=== PATIENT | female | born 1945 | race Caucasian/White ===

== ENCOUNTER 2017-04-06 14:32 | Observation (INO) ==
[2017-04-06] MEDS ORDERED: ENOXAPARIN 100 MG/ML SYRINGE SUBCUT STA (15:14)
[2017-04-06] MEDS ORDERED: ENOXAPARIN 100 MG/ML SYRINGE SUBCUT ONE (15:26)
[2017-04-06 15:27] LABS: Basophils # 0.1 10*3/uL (0.0-0.2); Basophils % 0.6 % (0.0-0.8); Eosinophils # 0.2 10*3/uL (0.0-0.87); Eosinophils % 1.1 % (0.00-10.9); Hematocrit 42.1 VOL% (35.7-47.0); Hemoglobin 14.6 GM/DL (12.0-16.0); Immature Granulocytes % 0.5 %; Immature Granulocytes Absolute 0.07 #; Lymphocytes # 2.9 10*3/uL (1.4-4.0); Lymphocytes % 20.1 % (21.3-54.2); Mean Corpuscular HGB Conc 34.7 GM/DL (32-36); Mean Corpuscular Hemoglobin 31 PG (27-34); Mean Corpuscular Volume 88.1 FL (87-102); Monocytes # 1.3 10*3/uL (0.11-0.8); Monocytes % 9.3 % (1.7-12.7); Neutrophils # 9.9 10*3/uL (1.4-7.4); Neutrophils % 68.4 % (38.7-73.9); Platelet Count 369 T/CUMM (130-400); Red Blood Count 4.78 MC/CUMM (3.8-5.5); Red Cell Distribution Width 13.2 % (9.3-17.3); White Blood Count 14.5 T/CUMM (4-12)
--- NOTE | 2017-04-06 15:29 | XRay Report ---
XR chest 2V Indication: Chest pain. Chest 2 views: No comparison. The heart size and mediastinal contour are normal. The lungs and pleural spaces are clear, except for scattered calcified granuloma. Bones are unremarkable. Impression: Negative chest except for prior granulomatous disease. PROCEDURE INTERPRETED AT [facility] DEPARTMENT OF RADIOLOGY Final Report Signed by: Vargas Reyes M.D.
[2017-04-06] MEDS ORDERED: NITROGLYCERIN SL 0.4 MG TABLET SL ONE (15:53)
[2017-04-06] MEDS: NITROGLYCERIN SL 0.4 MG TABLET SL PRN ×2 (15:53→16:45)
[2017-04-06 15:58] LABS: Alanine Aminotransferase 31 U/L (13-56); Albumin 3.6 G/DL (3.4-5.0); Alkaline Phosphatase 71 U/L (45-117); Aspartate Amino Transferase 24 U/L (0-37); Bilirubin,Total < 0.39 MG/DL (0.2-1.0); Blood Urea Nitrogen 30 MG/DL (7-18); Calcium 9.9 MG/DL (8.5-10.1); Glucose 105 MG/DL (74-106); Osmolality,Calculated 284.4 MOS/KG (273-304); Potassium 3.7 MMOL/L (3.5-5.1); Sodium 140 MMOL/L (136-145); Total Protein 7.4 G/DL (6.4-8.3)
--- NOTE | 2017-04-06 16:32 | Emergency Department Note ---
Kecia Whitman Mantricia, am scribing for, and in the presence of, Orestes Solorio MD 15:21. Osmin Whitman Phillip K, MD, personally performed the services described in this documentation, ascribed by Olivia Mcdonnell in my presence, and it is both accurate and complete [id number] . Arrival - Arrival Chief Complaint: Chest Pain Stated Complaint: CHEST PAIN ED Nursing Triage Note: Pt c/o Chest pain when she awoke this am that is worse with deep inspiration. Pt had EGD by Dr Mena yesterday. Mode of Arrival: Wheelchair Limitations: No Limitations Source: Patient Time Seen by Provider: 04/06/17 15:05 - History of Present Illness HPI Narrative: Pt is a 72 y/o white female arriving to ED with c/o chest pain that onset 0700 today. She states that the pain worsens with breaths and is constant with LUE pain. She was given two aspirins at the clinic and states that she stills feel pressure. Pt has a PMHx of HTN and HLD. She confirms smoking 1/2 pack of cigarettes a day. She reports that yesterday she had an upper scope done by Dr. Mena at [place] and had several biopsies and she thought that maybe something went wrong the reason that her chest began to hurt today. However, she called back to the doctor and he informed her that the scope was not connected to her chest pain and requested that she come to ED. She reports no other complaints to ED. patient was also recently diagnosed with gallstones at [place]. Patient's pain was relieved with nitroglycerin sublingual in the ED after 2 minutes. There is no associated shortness of breath nausea vomiting or diaphoresis. Patient apparently is never had any type of cardiac workup. Onset (ago): hour(s) Consistency: constant Allergies/Adverse Reactions: Allergies Allergy/AdvReac Type Severity Reaction Status Date / Time codeine Allergy ITCHING Verified 04/06/17 14:42 quinidine Allergy ITCHING Verified 04/06/17 14:42 Home Medications: Home Medications Medication Instructions Recorded Confirmed Type Atorvastatin [Lipitor] 20 mg PO DAILY 04/06/17 04/06/17 History Cetirizine Tab [ZyrTEC Tab] 10 mg PO DAILY 04/06/17 04/06/17 History Fenofibrate 160 mg PO DAILY 04/06/17 04/06/17 History Gabapentin 100 mg PO DAILY 04/06/17 04/06/17 History Gabapentin 300 mg PO QPM 04/06/17 04/06/17 History Hydrocodone/Acetaminophen 1 each PO BID PRN 04/06/17 04/06/17 History [Hydrocodon-Acetaminoph 7.5-325] [place]-3/Dha/Epa/Fish Oil [Fish Oil 4,000 mg PO DAILY 04/06/17 04/06/17 History Conc 1,000 mg Softgel] Triamterene/Hydrochlorothiazid 1 each PO DAILY 04/06/17 04/06/17 History [Triamterene-Hctz 37.5-25 mg Tb] amLODIPine [Norvasc] 5 mg PO DAILY 04/06/17 04/06/17 History buPROPion SR [Wellbutrin Sr] 100 mg PO DAILY 04/06/17 04/06/17 History hydroCHLOROthiazide 12.5 mg PO DAILY 04/06/17 04/06/17 History [Hydrochlorothiazide] Review of System - Review of System 12 point system: reviewed and no additional remarkable complaints except as stated - Review of System Constitutional: Absent: chills, diaphoresis Eyes: Absent: pain Cardiovascular: Present: chest pain Musculoskeletal: Present: arm pain (left) Medical,Surgical,& Family Hx - Medical History Cardio: History of: Hypertension Psychological: History of: Depression Endocrine: History of: Dyslipidemia Rheumatology: History of;: Fibromyalgia Hematology: History of: Anemia - Surgical History Reproductive Surgeries: Surgical HX of;: Hysterectomy Orthopedic Surgeries: Surgical HX of;: Orthopedic Surgery (Carpal tunnel), Total Knee Replacement (Oren) - Social History Smoking Status: Never smoker Exam Vital Signs: Vital Signs Temperature 97.3 F L 04/06/17 14:41 Pulse Rate 93 H 04/06/17 14:41 Respiratory Rate 20 04/06/17 14:41 Blood Pressure 128/77 04/06/17 14:41 O2 Sat by Pulse Oximetry 98 04/06/17 14:41 - General General appearance: alert, in no apparent distress - Head Head exam: Present: atraumatic, normocephalic, normal inspection - Eye Eye exam: Present: normal appearance, PERRL, EOMI - ENT ENT exam: Present: normal exam, normal oropharynx, mucous membranes dry, TM's normal bilaterally, normal external ear exam - Neck Neck exam: Present: normal inspection, full ROM, trachea midline. Absent: tenderness - Chest Chest inspection: Present: symmetric chest wall rise, tenderness (left anterior chest wall) - Respiratory Respiratory exam: Present: normal lung sounds bilaterally - Cardiovascular Cardiovascular exam: Present: regular rate, normal rhythm, normal heart sounds - Abdominal Exam Abdominal exam: Present: soft, normal bowel sounds. Absent: distention, tenderness, guarding, rebound - Extremities Exam Extremities exam: Present: normal inspection, full ROM, tenderness (LUE), normal capillary refill. Absent: pedal edema - Back Exam Back exam: Present: normal inspection, full ROM. Absent: tenderness - Neurological Exam Neurological exam: Present: alert, oriented X3, CN II-XII intact, normal gait, reflexes normal - Psychiatric Psychiatric exam: Present: normal affect, normal mood - Skin Skin exam: Present: warm, dry, intact, normal color Course Course Narrative: Patient discussed with the hospitalist who will admit and get a cardiac evaluation. Results - Labs CBC & BMP: 04/06/17 15:17 04/06/17 15:17 Lab Results: I have reviewed the patients labs - EKG EKG results: interpreted by LIZETH, sinus rhythm (Questionable old septal WA) Disposition Clinical Impression: Chest pain, Possible unstable angina, History of cholelithiasis, Chest wall pain, Possible pleurisy Case discussed with: patient Disposition: Still a Patient Condition: Guarded Additional Instructions: Admit to the hospitalist for cardiac evaluation.
[2017-04-06] MEDS ORDERED: diphenhydrAMINE CAP 25 MG CAPSULE PO PRN (17:05)
[2017-04-06] MEDS ORDERED: NICOTINE 21 MG/24 HR PATCH TRANSDERM PRN (17:05)
[2017-04-06] MEDS ORDERED: guaiFENesin/DM ER 600-30 MG TABLET PO PRN (17:05)
[2017-04-06] MEDS ORDERED: MORPHINE 2 MG/1 ML SYRINGE IV PRN (17:05)
[2017-04-06] MEDS ORDERED: PROMETHAZINE 25 MG/1 ML VIAL IM PRN (17:05)
[2017-04-06] MEDS ORDERED: DOCUSATE SODIUM 100 MG CAPSULE PO PRN (17:05)
[2017-04-06] MEDS ORDERED: ONDANSETRON 4 MG/2 ML VIAL IV PRN (17:05)
--- NOTE | 2017-04-06 17:20 | Hospitalist History & Physical ---
Assessment and Plan - Time spent with patient Time spent with patient: Greater than 30 minutes (1) Shortness of breath Status: Acute Assessment and plan: Ms. Mckoy is a very pleasant 72-year-old white female with history of hypertension, chronic pain, and tobacco abuse admitted by the hospitalist service to observation with chest pain and shortness of breath. Patient had an EGD done yesterday and pain may be consistent with pleuritic chest pain. But with patient's tobacco use and history of heart disease would be safe to consult cardiology for further evaluation. Will get serial troponins and serial EKGs. Will also obtain a CT of the chest to rule out pulmonary embolism. She does have a mildly elevated creatinine of 1.2 so we will give her some IV fluids and see if this brings it back down. We will recheck her labs in the morning. Patient's home medicines will be restarted and will continue to monitor her symptoms. Dr. Guillen will see and examined patient and further recommendations to follow. Current Visit: Yes (2) Hypertension Status: Acute Current Visit: Yes (3) Hyperlipidemia Status: Acute Current Visit: Yes (4) Fibromyalgia Status: Acute Current Visit: Yes (5) Chest pain Status: Acute Current Visit: Yes History of Present Illness Chief complaint: Chest pain History of present illness: Ms. Segovia is a 72 year old white female with history of hypertension, tobacco abuse and fibromyalgia presenting to the ED with a 1 day history of chest pain and shortness of breath. Patient states she had an EGD at Dr. Mena's office yesterday and he took some biopsies and everything went fine. She woke up this morning with left-sided chest pain that increases with deep inspiration. She is getting short of breath with minimal exertion. She called Dr. Mena's office and they told her to go see Dr. Mathew. Dr. Mathew was out but her nurses walked her over to the ED. She denies nausea or diaphoresis. She denies headache, abdominal pain, constipation or diarrhea, or lower extremity edema. She just switched over to Dr. Mahtew as her primary care physician and she has never used [facility] before. Upon exam patient does have conversational dyspnea and she is holding her chest with deep breathing. She is afebrile her pulse rate is in the 90s and her blood pressure stable. Her WBCs are elevated at 14.5, creatinine mildly elevated at 1.2 and her troponin is negative. Her EKG shows sinus rhythm with first-degree AV block and a ventricular conduction delay. Her chest x-ray shows prior granulomatous disease. Patient's case was discussed with Dr. Solorio the ED physician and Dr. Guillen the admitting hospitalist and it was agreed patient would be admitted for further evaluation. Home Medications Medication Instructions Recorded Confirmed Type Atorvastatin [Lipitor] 20 mg PO DAILY 04/06/17 04/06/17 History Cetirizine Tab [ZyrTEC Tab] 10 mg PO DAILY 04/06/17 04/06/17 History Fenofibrate 160 mg PO DAILY 04/06/17 04/06/17 History Gabapentin 100 mg PO DAILY 04/06/17 04/06/17 History Gabapentin 300 mg PO QPM 04/06/17 04/06/17 History Hydrocodone/Acetaminophen 1 each PO BID PRN 04/06/17 04/06/17 History [Hydrocodon-Acetaminoph 7.5-325] [place]-3/Dha/Epa/Fish Oil [Fish Oil 4,000 mg PO DAILY 04/06/17 04/06/17 History Conc 1,000 mg Softgel] Triamterene/Hydrochlorothiazid 1 each PO DAILY 04/06/17 04/06/17 History [Triamterene-Hctz 37.5-25 mg Tb] amLODIPine [Norvasc] 5 mg PO DAILY 04/06/17 04/06/17 History buPROPion SR [Wellbutrin Sr] 100 mg PO DAILY 04/06/17 04/06/17 History hydroCHLOROthiazide 12.5 mg PO DAILY 04/06/17 04/06/17 History [Hydrochlorothiazide] Allergies Allergy/AdvReac Type Severity Reaction Status Date / Time codeine Allergy ITCHING Verified 04/06/17 14:42 quinidine Allergy ITCHING Verified 04/06/17 14:42 Medical,Surgical,& Family Hx - Medical History Cardio: History of: Hypertension Psychological: History of: Depression Endocrine: History of: Dyslipidemia Rheumatology: History of;: Fibromyalgia Hematology: History of: Anemia - Surgical History Reproductive Surgeries: Surgical HX of;: Hysterectomy Orthopedic Surgeries: Surgical HX of;: Orthopedic Surgery (Carpal tunnel), Total Knee Replacement ([facility]) - Family History Family History: Reports;: Family Heart Disease - Social History Smoking Status: Current every day smoker Frequency of Alcohol Use: None Type of Drug Use: None Marital Status: Lives With:: Alone Functional capacity: independent ambulation Review of systems: A complete 10 system review of systems was obtained and pertinent positives and negatives per HPI Exam - Constitutional Vitals: Period Temp Pulse Resp BP Sys/Stone Pulse Ox Last 24 Hr 97.3 F-97.3 F 93-93 20-20 128-128/77-77 98 Exam: Constitutional System: Mild distress. No tremulousness. Head: Normocephalic, atraumatic. Ears, Nose and Throat System: No evidence of Otitis or Mastoiditis. No epistaxis or discharge Eyes System: Pupils equal, round, and reactive. Extraocular muscles intact. Neck: Supple, without adenopathy, No jugular venous distention. No thyromegaly, neck mass, or prior surgery apparent. Respiratory System: Chest clear to auscultation. Cardiovascular System: Heart with regular rate and rhythm. No murmur. GI System: Abdomen soft, nontender. Normo active bowel sounds present. Musculoskeletal System: limbs with no pedal edema. Full distal pulses. Neurological System: No discernable sensory deficit. No aphasia Psychiatric System: Conversation is rational Results - Labs CBC & BMP: 04/06/17 15:17 04/06/17 15:17 Lab Results: I have reviewed the past 24 hour labs - Impressions EKG shows sinus rhythm with first-degree AV block and right ventricular conduction delay - Diagnostic Findings Procedure: Chest x-ray: report reviewed by me (Negative chest except for prior granulomatous disease)
--- NOTE | 2017-04-06 18:34 | CT Report ---
CT chest PE study Indication: Chest pain and shortness of breath. CT CHEST WITH CONTRAST, PE PROTOCOL DLP: 229 mGy*cm. One or more of the following dose reduction techniques was used: Automated exposure control, adjustment of the mA and/or kV according the patient size, or use of iterative reconstruction techniques. Comparison: None Technique: Axial CT images of the chest were obtained during the pulmonary arterial phase of contrast injection. Coronal reconstructions were provided. Omnipaque 350, 80 cc. Findings: A central, lobar or segmental pulmonary artery filling defects. Main pulmonary arteries normal in size. Normal heart size. Calcified atheromatous disease of coronary arteries is present and mild. Aortic is grossly unremarkable. No mediastinal, axillary or hilar lymphadenopathy. Limited views of the upper abdomen are benign. Pleural spaces are clear. There are couple of calcified granulomata. 3 mm pulmonary nodule within the anterior segment right upper lobe noted. Lungs are otherwise clear. Mild endplate spondylitic changes thoracic spine. Impression: No evidence of PE. 3 mm pulmonary nodule right upper lobe, too small to further characterize. PROCEDURE INTERPRETED AT [facility] DEPARTMENT OF RADIOLOGY Final Report Signed by: Vargas Reyes M.D.
[2017-04-06] MEDS ORDERED: GABAPENTIN 300 MG CAPSULE PO SCH (19:00)
[2017-04-06 19:08] LABS: Troponin I Only < 0.015 NG/ML (0.00-0.045)
[2017-04-06] MEDS: ENOXAPARIN 40 MG/0.4 ML SYRINGE SUBCUT SCH ×2 (20:16→20:25)
[2017-04-06] MEDS: SODIUM CHLORIDE 0.9% 1,000 ML IV SCH (20:17)
[2017-04-06] MEDS: ACETAMINOPHEN 325 MG TABLET PO PRN (20:18)
--- NOTE | 2017-04-06 21:21 | EKG Report ---
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
[2017-04-06 22:29] LABS: Troponin I Only < 0.015 NG/ML (0.00-0.045)
[2017-04-07] MEDS: ACETAMINOPHEN 325 MG TABLET PO PRN (02:56)
[2017-04-07] MEDS: SODIUM CHLORIDE 0.9% 1,000 ML IV SCH ×2 (04:44→11:22)
[2017-04-07 05:06] LABS: Basophils # 0.1 10*3/uL (0.0-0.2); Basophils % 0.5 % (0.0-0.8); Eosinophils # 0.2 10*3/uL (0.0-0.87); Eosinophils % 1.9 % (0.00-10.9); Hemoglobin 13.1 GM/DL (12.0-16.0); Immature Granulocytes % 0.3 %; Immature Granulocytes Absolute 0.03 #; Lymphocytes # 3.6 10*3/uL (1.4-4.0); Lymphocytes % 37.5 % (21.3-54.2); Mean Corpuscular HGB Conc 33.6 GM/DL (32-36); Mean Corpuscular Hemoglobin 30 PG (27-34); Mean Corpuscular Volume 89.7 FL (87-102); Mean Platelet Volume 9.3 FL (9.6-12.0); Monocytes # 1.1 10*3/uL (0.11-0.8); Monocytes % 11.6 % (1.7-12.7); Neutrophils # 4.7 10*3/uL (1.4-7.4); Neutrophils % 48.2 % (38.7-73.9); Platelet Count 328 T/CUMM (130-400); Red Blood Count 4.35 MC/CUMM (3.8-5.5); Red Cell Distribution Width 13.4 % (9.3-17.3); White Blood Count 9.7 T/CUMM (4-12)
[2017-04-07 05:40] LABS: Calcium 8.8 MG/DL (8.5-10.1); Osmolality,Calculated 286.1 MOS/KG (273-304); Potassium 3.7 MMOL/L (3.5-5.1)
--- NOTE | 2017-04-07 07:18 | XRay Report ---
XR chest 2V Indication: Shortness of breath. Chest 2 views: Comparison yesterday. Heart size remains normal with continued tortuosity thoracic aorta. No new infiltrates are seen. Pleural spaces remain clear. Impression: No change. PROCEDURE INTERPRETED AT [facility] DEPARTMENT OF RADIOLOGY Final Report Signed by: Vargas Reyes M.D.
--- NOTE | 2017-04-07 08:15 | EKG Report ---
Stationary ECG Study [facility] ER Test Date: 04/06/2017 2:44:13 PM Pat Name: YANIRA FULLER Department: Room: 292 Gender: F Pay Clerk: Morro De León : 1945 Requested by: Orestes Corea Order Number: [id number] Reading MD: RD JEFFRIES Intervals [place] Rate: 91 P: 69 MS: 215 QRS: 71 QRSD: 94 T: 71 QT: 348 QTc: 397 Interpretive Statements SINUS RHYTHM WITH FIRST DEGREE AV BLOCK RSR (QR) IN V1/V2 CONSISTENT WITH RIGHT VENTRICULAR CONDUCTION DELAY Electronically Signed On 04-08-17 07:57:[address] JEFFREIS [id number]
[2017-04-07] MEDS ORDERED: amLODIPine 5 MG TABLET PO SCH (09:00)
[2017-04-07] MEDS ORDERED: FENOFIBRATE 160 MG TABLET PO SCH (09:00)
[2017-04-07] MEDS ORDERED: GABAPENTIN 100 MG CAPSULE PO SCH (09:00)
[2017-04-07] MEDS ORDERED: OMEGA 3 ACID ETHYL ESTERS 1 GM CAPSULE PO SCH (09:00)
[2017-04-07] MEDS ORDERED: TRIAMTERENE/HCTZ 37.5-25 MG TABLET PO SCH (09:00)
[2017-04-07] MEDS ORDERED: CETIRIZINE 10 MG TABLET PO SCH (09:00)
[2017-04-07] MEDS ORDERED: ATORVASTATIN 20 MG TABLET PO SCH (09:00)
[2017-04-07] MEDS ORDERED: PANTOPRAZOLE 40 MG TABLET PO SCH (09:00)
[2017-04-07] MEDS ORDERED: hydroCHLOROthiazide 12.5 MG CAPSULE PO SCH (09:00)
--- NOTE | 2017-04-07 10:59 | Cardiology Consult Note ---
Assessment and Plan (1) Chest pain Status: Acute Assessment and plan: 1. 72-year-old WF smoker (one half pack per day) with hypertension, dyslipidemia, fibromyalgia, family history of CAD (both parents at age 72 and 73 of [place]) who had EGD 2 days ago and then yesterday had hours of sharp upper left chest pain with a pleuritic component which is now resolved. 2. Normal EKG other than poor R-wave progression is noted and she is ruled out for myocardial infarction by serial cardiac markers. 3. She can be discharged from a cardiac standpoint 4. Schedule exercise myocardial scan next week at [facility]; of course she would need to be n.p.o. with comfortable closing shoes to walk prior to procedure. 5. 2/6 diastolic murmur at the right second intercostal space; check echocardiogram at [facility] "murmur chest pain shortness of breath" 6. Scheduled follow with me in 1-2 weeks time to follow-up her symptoms and test results. Current Visit: Yes (2) Hyperlipidemia Status: Acute Current Visit: Yes (3) Hypertension Status: Acute Current Visit: Yes History of Present Illness - Consult Narrative Reason for consult: cp History of present illness: Ms. Segovia is a 72 year old female with no previous cardiac history. She had an EGD 2 days ago for workup of "gallbladder". She reports she has gallbladder stones but she has had sharp pains in her left upper quadrant intermittently for weeks and is being followed by Dr. Mena at [place]. Yesterday she developed severe persistent sharp upper left chest pain involving her shoulder. There was a clear pleuritic component. She felt short of breath because she could not "get a full breath". 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 Her chest is not tender to palpation. She reports no change with exertion laying down position or eating. She is concerned given her strong family history of CAD. She is asymptomatic today and is anxious for discharge. CC: Sindy Orellana MD - Home Medications and Allergies Home Medications: Home Medications Medication Instructions Recorded Confirmed Type Atorvastatin [Lipitor] 20 mg PO DAILY 04/06/17 04/06/17 History Cetirizine Tab [ZyrTEC Tab] 10 mg PO DAILY 04/06/17 04/06/17 History Fenofibrate 160 mg PO DAILY 04/06/17 04/06/17 History Gabapentin 100 mg PO DAILY 04/06/17 04/06/17 History Gabapentin 300 mg PO QPM 04/06/17 04/06/17 History Hydrocodone/Acetaminophen 1 each PO BID PRN 04/06/17 04/06/17 History [Hydrocodon-Acetaminoph 7.5-325] [place]-3/Dha/Epa/Fish Oil [Fish Oil 4,000 mg PO DAILY 04/06/17 04/06/17 History Conc 1,000 mg Softgel] Triamterene/Hydrochlorothiazid 1 each PO DAILY 04/06/17 04/06/17 History [Triamterene-Hctz 37.5-25 mg Tb] amLODIPine [Norvasc] 5 mg PO DAILY 04/06/17 04/06/17 History buPROPion SR [Wellbutrin Sr] 100 mg PO DAILY 04/06/17 04/06/17 History hydroCHLOROthiazide 12.5 mg PO DAILY 04/06/17 04/06/17 History [Hydrochlorothiazide] Allergies/Adverse Reactions: Allergies Allergy/AdvReac Type Severity Reaction Status Date / Time codeine Allergy ITCHING Verified 04/06/17 14:42 quinidine Allergy ITCHING Verified 04/06/17 14:42 Medical,Surgical,& Family Hx - Medical History Cardio: History of: Hypertension Psychological: History of: Depression Endocrine: History of: Dyslipidemia Rheumatology: History of;: Fibromyalgia Respiratory: History of: Respiratory Problems (allergies) Hematology: History of: Anemia - Surgical History Cardiac Surgeries: Patient Denies: Cardiac Catheterization Thoracic Surgeries: Patient denies;: Organ Transplant, Lobectomy Neurologic Surgeries: Patient denies: Neurologic Surgery Abdominal Surgeries: Patient denies: Abdominal Surgery Reproductive Surgeries: Surgical HX of;: Gynecologic Surgery, Hysterectomy Patient denies;: Genitourinary Surgery Orthopedic Surgeries: Surgical HX of;: Orthopedic Surgery (Carpal tunnel), Total Knee Replacement ([facility]) - Family History Family History: Reports;: Family Heart Disease - Social History Smoking Status: Current every day smoker Frequency of Alcohol Use: None Type of Drug Use: None Physical Examination Vital Signs Temp Pulse Resp BP Pulse Ox 97.3 F L 93 H 20 128/77 98 04/06/17 14:41 04/06/17 14:41 04/06/17 14:41 04/06/17 14:41 04/06/17 14:41 Result/EKG - Labs CBC & BMP: 04/07/17 03:54 04/07/17 03:54 Labs: Laboratory Results - last 24 hr 04/06/17 04/06/17 04/06/17 15:17 15:17 15:17 WBC 14.5 H RBC 4.78 Hgb 14.6 Hct 42.1 MCV 88.1 MCH 31 MCHC 34.7 RDW 13.2 Plt Count 369 MPV 9.0 L Neut % (Auto) 68.4 Lymph % (Auto) 20.1 L [place] % (Auto) 9.3 Eos % (Auto) 1.1 Baso % (Auto) 0.6 Neut # (Auto) 9.9 H Lymph # (Auto) 2.9 [place] # (Auto) 1.3 H Eos # (Auto) 0.2 Baso # (Auto) 0.1 Immature Gran % 0.5 Nucleated RBC % 0.0 Immature Gran # 0.07 Nucleated RBCs # 0.00 Sodium 140 Potassium 3.7 Chloride 105 Carbon Dioxide 26 Anion Gap 12.7 BUN 30 H Creatinine 1.20 H GFR Calculation 43 BUN/Creatinine Ratio 25.00 H Glucose 105 Calculated Osmolality 284.4 Calcium 9.9 Magnesium 2.0 Total Bilirubin < 0.39 AST 24 ALT 31 Alkaline Phosphatase 71 Total Creatine Kinase CK-MB (CK-2) Troponin I < 0.015 Total Protein 7.4 Albumin 3.6 Globulin 3.8 H Albumin/Globulin Ratio 0.9 L 04/06/17 04/06/17 04/07/17 18:28 21:29 03:54 WBC 9.7 D RBC 4.35 Hgb 13.1 Hct 39.0 MCV 89.7 MCH 30 MCHC 33.6 RDW 13.4 Plt Count 328 MPV 9.3 L Neut % (Auto) 48.2 Lymph % (Auto) 37.5 [place] % (Auto) 11.6 Eos % (Auto) 1.9 Baso % (Auto) 0.5 Neut # (Auto) 4.7 Lymph # (Auto) 3.6 [place] # (Auto) 1.1 H Eos # (Auto) 0.2 Baso # (Auto) 0.1 Immature Gran % 0.3 Nucleated RBC % 0.0 Immature Gran # 0.03 Nucleated RBCs # 0.00 Sodium Potassium Chloride Carbon Dioxide Anion Gap BUN Creatinine GFR Calculation BUN/Creatinine Ratio Glucose Calculated Osmolality Calcium Magnesium Total Bilirubin AST ALT Alkaline Phosphatase Total Creatine Kinase 51 46 CK-MB (CK-2) 1.0 1.1 Troponin I < 0.015 < 0.015 Total Protein Albumin Globulin Albumin/Globulin Ratio 04/07/17 03:54 WBC RBC Hgb Hct MCV MCH MCHC RDW Plt Count MPV Neut % (Auto) Lymph % (Auto) [place] % (Auto) Eos % (Auto) Baso % (Auto) Neut # (Auto) Lymph # (Auto) [place] # (Auto) Eos # (Auto) Baso # (Auto) Immature Gran % Nucleated RBC % Immature Gran # Nucleated RBCs # Sodium 142 Potassium 3.7 Chloride 110 H Carbon Dioxide 24 Anion Gap 11.7 BUN 24 H Creatinine 0.90 GFR Calculation 61 BUN/Creatinine Ratio 26.00 H Glucose 90 Calculated Osmolality 286.1 Calcium 8.8 Magnesium Total Bilirubin AST ALT Alkaline Phosphatase Total Creatine Kinase CK-MB (CK-2) Troponin I Total Protein Albumin Globulin Albumin/Globulin Ratio Quality Measures - Stroke Symptom Onset Unknown: No
--- NOTE | 2017-04-07 11:10 | Discharge Summary ---
Hospital Course - Hospital Course Hospital Course: Mrs Segovia is a 72 yo smoker who presented with pleuritic type chest pain. She had negative troponins and EKG, and her chest CT did not show PE or damage to her esophagus (she had an EGD the day before admission). Her chest pain is much improved this morning. She was seen by Dr Fitzpatrick from cardiology who wants her to go home today, have a stress test next week at [facility] and also an echo and to see him in clinic in 1-2 weeks. She will also continue to see her PCP, Dr Mathew. She has gallstones that are being evaluated. - Time spent with patient Time with patient DS: Greater than 30 minutes (exam, care coordination with consultants, discharge planning, medicine reconciliation.) Diagnosis - Discharge Diagnosis (1) Pleuritic chest pain Status: Resolved (2) History of cholelithiasis Status: Chronic (3) Shortness of breath Status: Resolved (4) Hypertension Status: Chronic (5) Hyperlipidemia Status: Chronic Specialty Discharge - Follow Up or Referrals Follow up with: Henrique Fitzpatrick MD [Physician] - 2 Weeks (schedule stress test in office for next week, ) Erin Mathew M.D. [Physician] - 1 Week - Speciality Discharge Instructions Cardiology Instructions: stress test at [facility] next week. echo at [facility] Discharge Plan - Discharge Data Disposition: Disch To Home/Self Care Condition at Discharge: Stable Discharge Diet: heart healthy Activity: resume usual activities as tolerated - Discharge Medications Continue buPROPion SR [Wellbutrin Sr] 100 mg PO DAILY Cetirizine Tab [ZyrTEC Tab] 10 mg PO DAILY Hydrocodone/Acetaminophen [Hydrocodon-Acetaminoph 7.5-325] 1 each PO BID PRN PRN Reason: Pain Gabapentin 300 mg PO QPM Gabapentin 100 mg PO DAILY hydroCHLOROthiazide [Hydrochlorothiazide] 12.5 mg PO DAILY [place]-3/Dha/Epa/Fish Oil [Fish Oil Conc 1,000 mg Softgel] 4,000 mg PO DAILY Fenofibrate 160 mg PO DAILY Triamterene/Hydrochlorothiazid [Triamterene-Hctz 37.5-25 mg Tb] 1 each PO DAILY Atorvastatin [Lipitor] 20 mg PO DAILY amLODIPine [Norvasc] 5 mg PO DAILY - Follow Up or Referral Follow Up: Henrique Fitzpatrick MD [Physician] - 2 Weeks (schedule stress test in office for next week, ) - Forms/Instructions Instructions: Chest Pain (DC), Gallstones (DC) Exam - Constitutional Vitals: Period Temp Pulse Resp BP Sys/Stone Pulse Ox Last 24 Hr 97.2 F-98.6 F 61-93 12-20 109-128/56-77 94-98 General appearance: normal weight, no acute distress - Head Head exam: Present: normocephalic, atraumatic - Eye Eye exam: Present: EOMI. Absent: scleral icterus Pupils: Present: KYLAH - Respiratory Respiratory exam: Present: clear to auscultation bilaterally - Cardiovascular Cardiovascular exam: Present: regular rate and rhythm - GI/Abdominal GI/Abdominal exam: Present: normal bowel sounds, soft. Absent: tenderness - Extremities Exam Extremities exam: Absent: edema Discharge Results Labs on day of discharge: Labs from last 24 hours 04/07/17 04/07/17 04/06/17 03:54 03:54 21:29 WBC 9.7 D RBC 4.35 Hgb 13.1 Hct 39.0 MCV 89.7 MCH 30 MCHC 33.6 RDW 13.4 Plt Count 328 MPV 9.3 L Neut % (Auto) 48.2 Lymph % (Auto) 37.5 [place] % (Auto) 11.6 Eos % (Auto) 1.9 Baso % (Auto) 0.5 Neut # (Auto) 4.7 Lymph # (Auto) 3.6 [place] # (Auto) 1.1 H Eos # (Auto) 0.2 Baso # (Auto) 0.1 Immature Gran % 0.3 Nucleated RBC % 0.0 Immature Gran # 0.03 Nucleated RBCs # 0.00 Sodium 142 Potassium 3.7 Chloride 110 H Carbon Dioxide 24 Anion Gap 11.7 BUN 24 H Creatinine 0.90 GFR Calculation 61 BUN/Creatinine Ratio 26.00 H Glucose 90 Calculated Osmolality 286.1 Calcium 8.8 Magnesium Total Bilirubin AST ALT Alkaline Phosphatase Total Creatine Kinase 46 CK-MB (CK-2) 1.1 Troponin I < 0.015 Total Protein Albumin Globulin Albumin/Globulin Ratio 04/06/17 04/06/17 04/06/17 18:28 15:17 15:17 WBC 14.5 H RBC 4.78 Hgb 14.6 Hct 42.1 MCV 88.1 MCH 31 MCHC 34.7 RDW 13.2 Plt Count 369 MPV 9.0 L Neut % (Auto) 68.4 Lymph % (Auto) 20.1 L [place] % (Auto) 9.3 Eos % (Auto) 1.1 Baso % (Auto) 0.6 Neut # (Auto) 9.9 H Lymph # (Auto) 2.9 Good[place] # (Auto) 1.3 H Eos # (Auto) 0.2 Baso # (Auto) 0.1 Immature Gran % 0.5 Nucleated RBC % 0.0 Immature Gran # 0.07 Nucleated RBCs # 0.00 Sodium Potassium Chloride Carbon Dioxide Anion Gap BUN Creatinine GFR Calculation BUN/Creatinine Ratio Glucose Calculated Osmolality Calcium Magnesium Total Bilirubin AST ALT Alkaline Phosphatase Total Creatine Kinase 51 CK-MB (CK-2) 1.0 Troponin I < 0.015 < 0.015 Total Protein Albumin Globulin Albumin/Globulin Ratio 04/06/17 15:17 WBC RBC Hgb Hct MCV MCH MCHC RDW Plt Count MPV Neut % (Auto) Lymph % (Auto) [place] % (Auto) Eos % (Auto) Baso % (Auto) Neut # (Auto) Lymph # (Auto) [place] # (Auto) Eos # (Auto) Baso # (Auto) Immature Gran % Nucleated RBC % Immature Gran # Nucleated RBCs # Sodium 140 Potassium 3.7 Chloride 105 Carbon Dioxide 26 Anion Gap 12.7 BUN 30 H Creatinine 1.20 H GFR Calculation 43 BUN/Creatinine Ratio 25.00 H Glucose 105 Calculated Osmolality 284.4 Calcium 9.9 Magnesium 2.0 Total Bilirubin < 0.39 AST 24 ALT 31 Alkaline Phosphatase 71 Total Creatine Kinase CK-MB (CK-2) Troponin I Total Protein 7.4 Albumin 3.6 Globulin 3.8 H Albumin/Globulin Ratio 0.9 L DS: Provider Date of admission: 04/06/17 16:33 Primary care physician: . No PCP Attending physician on admission: Aaron Mann MD Consults: 04/06/17 17:05 Consult to Physician [CONS] Routine Comment: chest pain Consulting Provider: Henrique Fitzpatrick When should Consulting Provider be notified: Now Person Notified: Dr. Barker Date Notified: 04/06/17 Time Notified: 19:30 Consult Notification Comment: will see patient in AM. 04/06/17 18:55 Consult to Pastoral Services [CONS] Routine Comment: Pastoral Screen: Declines Visit Pastoral Screen Source of Request: Patient Discharging clinician: Sindy Orellana MD
[2017-04-07] MEDS: buPROPion SR 100 MG TABLET PO SCH ×2 (11:17→11:21)
[2017-04-07 11:50] VITALS: BP 147/70
[2017-04-07] MEDS ORDERED: NICOTINE 14 MG/24 HR PATCH TRANSDERM SCH (12:00)
== END 2017-04-07 12:34 | disposition home or self-care (01) ==
LOC: N.ED 14:32 → SUATTDRO 16:33 → INTOOBSV 17:05 → N.TELEN 17:05
PROVIDERS: ADMIT Internal Medicine Infectious Disease; ATTEND Internal Medicine

== ENCOUNTER 2017-10-20 15:05 | Observation (INO) ==
[2017-10-20 16:27] LABS: Basophils % 0.4 % (0.0-0.8); Hematocrit 41.7 VOL% (35.7-47.0); Hemoglobin 13.3 GM/DL (12.0-16.0); Immature Granulocytes % 0.5 %; Immature Granulocytes Absolute 0.03 #; Lymphocytes # 1.2 10*3/uL (1.4-4.0); Lymphocytes % 21.6 % (21.3-54.2); Mean Corpuscular HGB Conc 31.9 GM/DL (32-36); Mean Corpuscular Hemoglobin 27 PG (27-34); Mean Corpuscular Volume 85.1 FL (87-102); Mean Platelet Volume 9.4 FL (9.6-12.0); Monocytes # 1.4 10*3/uL (0.11-0.8); Monocytes % 24.5 % (1.7-12.7); Platelet Count 264 T/CUMM (130-400); Red Cell Distribution Width 13.9 % (9.3-17.3); White Blood Count 5.6 T/CUMM (4-12)
[2017-10-20 16:35] LABS: Apearance,Urine CLOUDY (Clear); Bacteria,Urine Occasional /HPF (Few); Bilirubin,Urine Negative (Negative); Blood, Urine Large mg/dL (Negative); Glucose,Urine (UA) Negative (Negative); Granular Casts,Urine 1 /LPF (0-1); Hyaline Casts,Urine 8 /LPF (0-3); Ketones,Urine Negative (Negative); Mucus,Urine Occasional /LPF (Occasional); Nitrite,Urine Negative (Negative); Protein,Urine 100 MG/DL; RBC,Urine 47 /HPF (0-4); Squamous Epithelial Cell,Urine Occasional /HPF (0-10); Urine Color Yellow (Yellow); Urine Urobilinogen < 2.0 EU/DL (0.2-1.0); WBC,Urine 2 /HPF (0-6)
[2017-10-20 16:45] LABS: INR 1.1; PT Patient Result 11.1 SECS; Partial Thromboplastin Time 28.2 SECS (0-40)
[2017-10-20 16:47] LABS: Alanine Aminotransferase 44 U/L (13-56); Albumin 2.9 G/DL (3.4-5.0); Alkaline Phosphatase 54 U/L (45-117); Aspartate Amino Transferase 47 U/L (0-37); Bilirubin,Total < 0.39 MG/DL (0.2-1.0); Blood Urea Nitrogen 28 MG/DL (7-18); Calcium 8.5 MG/DL (8.5-10.1); Glucose 94 MG/DL (74-106); Osmolality,Calculated 278.8 MOS/KG (273-304); Potassium 3.5 MMOL/L (3.5-5.1); Sodium 137 MMOL/L (136-145); Total Protein 6.6 G/DL (6.4-8.3); Troponin I Only < 0.015 NG/ML (0.00-0.045)
[2017-10-20] MEDS ORDERED: ALBUTEROL/IPRATROPIUM 3 ML NEB RESP TX STA (17:29)
[2017-10-20] MEDS ORDERED: methylPREDNISolone SOD SUC 125 MG/2 ML VIAL IV STA (17:29)
[2017-10-20] MEDS ORDERED: MAGNESIUM SULF RIDER 2 GM in PREMIX 1 EACH IV STA (17:30)
[2017-10-20] MEDS ORDERED: cefTRIAXone 1,000 MG in SODIUM CHLORIDE 0.9% 100 ML IV STA (17:31)
[2017-10-20] MEDS ORDERED: cefTRIAXone 1,000 MG VIAL ONE (18:10)
[2017-10-20] MEDS ORDERED: methylPREDNISolone SOD SUC 125 MG/2 ML VIAL ONE (18:10)
[2017-10-20] MEDS ORDERED: MAGNESIUM SULF RIDER 50 ML IV ONE (18:10)
[2017-10-20 18:16] LABS: Barbiturates Screen,Urine Negative (Negative); Benzodiazepines Screen,Urine Negative (Negative); Cannabinoid Screen,Urine Negative (Negative); Opiate Screen,Urine Positive (Negative); Phencyclidine Screen,Urine Negative (Negative)
[2017-10-20 20:44] LABS: Band Neutrophils 3 % (0-10); Eosinophils 1 % (0-10); Hypochromasia 2+; Lymphocytes 21 % (20-55); Platelet Estimate Normal; Segmented Neutrophils 53 % (50-85); Total Cells Counted 100
[2017-10-20] MEDS ORDERED: ENOXAPARIN 40 MG/0.4 ML SYRINGE SUBCUT SCH (21:00)
[2017-10-20] MEDS ORDERED: ONDANSETRON 4 MG/2 ML VIAL IV PRN (21:16)
[2017-10-20] MEDS ORDERED: CETIRIZINE 10 MG TABLET PO SCH (21:16)
[2017-10-20] MEDS ORDERED: MORPHINE 2 MG/1 ML SYRINGE IV PRN (21:16)
[2017-10-20] MEDS ORDERED: NICOTINE 21 MG/24 HR PATCH TRANSDERM PRN (21:16)
[2017-10-20] MEDS ORDERED: SODIUM CHLORIDE 0.9% 1,000 ML IV ONE (21:16)
[2017-10-20] MEDS: GABAPENTIN 300 MG CAPSULE PO SCH (22:16)
[2017-10-20] MEDS: DOCUSATE SODIUM 100 MG CAPSULE PO SCH (22:23)
[2017-10-20] MEDS: SODIUM CHLORIDE 0.9% 1,000 ML IV SCH (23:52)
[2017-10-21 05:38] LABS: Risk Ratio 6.88; VLDL CHOLESTEROL 68.4 MG/DL
[2017-10-21] MEDS: DOCUSATE SODIUM 100 MG CAPSULE PO SCH (08:47)
[2017-10-21] MEDS ORDERED: DULoxetine 30 MG CAPSULE PO SCH (09:00)
[2017-10-21] MEDS ORDERED: hydroCHLOROthiazide 12.5 MG CAPSULE PO SCH (09:00)
[2017-10-21] MEDS ORDERED: amLODIPine 5 MG TABLET PO SCH (09:00)
[2017-10-21] MEDS ORDERED: PANTOPRAZOLE 40 MG TABLET PO SCH (09:00)
[2017-10-21] MEDS ORDERED: ICOSAPENT ETHYL 4 GM PO SCH (09:00)
[2017-10-21] MEDS: SODIUM CHLORIDE 0.9% 1,000 ML IV SCH (09:05)
[2017-10-21] MEDS: GABAPENTIN 300 MG CAPSULE PO SCH (09:06)
[2017-10-21 11:40] VITALS: BP 132/72
== END 2017-10-21 13:59 | disposition home or self-care (01) ==
LOC: EDUNIT# → EDBD → N.ED 15:05 → N.EDINP 18:59 → INTOOBSV 18:59 → N.TELEN 19:22
PROVIDERS: ADMIT Internal Medicine Infectious Disease; ATTEND Internal Medicine Infectious Disease